=== PATIENT | female | born 1975 | race Caucasian/White ===

== ENCOUNTER 2020-11-01 15:18 | Emergency (ER) | payer BC ==
[~2020-11-01] VITALS: Ht 165.1 cm; Wt 75.8 kg
[2020-11-01] MEDS ORDERED: BUTALBITAL, ACE1 TA2 PO (17:09)
[2020-11-01] MEDS ORDERED: SUMATRIPTAN SUC50 M1 PO (17:09)
[2020-11-01] MEDS ORDERED: BUSPIRONE HYDRO10 MG PO (17:10)
[2020-11-01] MEDS ORDERED: CYCLOBENZAPRINE10 M1 PO (17:10)
[2020-11-01] MEDS ORDERED: SERTRALINE HYD100 MG PO (17:10)
[2020-11-01 17:11] VITALS: BP 101/56
== END 2020-11-01 17:11 | disposition home or self-care (01) ==
LOC: ED 15:18
DX: R51.9 Headache, unspecified (principal); F41.9 Anxiety disorder, unspecified; Z86.69 Personal history of other diseases of the nervous system and sense organs; Z79.899 Other long term (current) drug therapy
CPT/HCPCS: J1885; J2360